=== PATIENT | male | born 1945 | race Caucasian/White ===

== ENCOUNTER 2021-03-11 10:22 | Inpatient (IN) | payer MEDICARE, OTHER ==
[~2021-03-11] VITALS: Ht 177.8 cm; Wt 88.5 kg
--- NOTE | 2021-03-11 11:30 | NUR ---
covid antigen sent to lab.
[2021-03-11 11:48] LABS: CALCIUM, SERUM 8.3 mg/dL (8.5-10.1); CARBON DIOXIDE 24 mmol/L (21-32); CHLORIDE 111 mmol/L (98-107); CREATININE 4.4 mg/dL (0.6-1.3); GLUCOSE 103 mg/dL (74-106); POTASSIUM 4.4 mmol/L (3.5-5.1); SODIUM SERUM 142 mmol/L (136-145); UREA NITROGEN, BLOOD 42 mg/dL (7-18)
[2021-03-11] MEDS ORDERED: NIFE90TA61 PO (12:10)
[2021-03-11] MEDS ORDERED: ATOR10TA PO (12:10)
[2021-03-11] MEDS ORDERED: HYDR-4077 PO (12:10)
[2021-03-11] MEDS ORDERED: ASPI-1420 PO (12:10)
[2021-03-11] MEDS ORDERED: ACET-868 PO (12:11)
[2021-03-11 12:20] LABS: BASOPHILS % (AUTO) 0.2 % (0.0-2.0); EOSINOPHILS % (AUTO) 1.4 % (0.0-6.0); HEMATOCRIT 29 % (39-51); HEMOGLOBIN 9.6 g/dL (13.5-17.5); LYMPHOCYTES % (AUTO) 11.9 % (20.0-44.0); MEAN CORPUSCULAR HGB CONC 34 g/dl (31.0-36.0); MEAN CORPUSCULAR VOLUME 95 fL (80-96); MONOCYTES # (AUTO) 0.7 K/uL (0.1-1.30); MONOCYTES % (AUTO) 8.1 % (2.0-12.0); NEUTROPHILS # (AUTO) 6.8 K/uL (1.8-8.9); NEUTROPHILS % (AUTO) 78.4 % (43.0-81.0); PLATELET COUNT (AUTO) 173 K/uL (150-450); RED BLOOD CELL COUNT(AUTO) 3.02 MIL/uL (4.5-6.0); WHITE BLOOD COUNT (AUTO) 8.6 K/uL (4.3-11.0)
[2021-03-11] MEDS ORDERED: MORPHINE SULFATE INJ 2 MG/ML DISP.SYRIN IV PRN (12:30)
[2021-03-11] MEDS ORDERED: IV NS 0.9% 1,000 ML IV PRN (12:30)
[2021-03-11] MEDS ORDERED: ACETAMINOPHEN 325 MG TABLET PO PRN (12:30)
[2021-03-11] MEDS ORDERED: hydrALAZINE HCL IV 20 MG VIAL IV PRN (12:30)
[2021-03-11] MEDS ORDERED: ONDANSETRON HCL/PF 4 MG/2 ML VIAL IVP PRN (12:30)
[2021-03-11 13:00] VITALS: BP 147/73
--- NOTE | 2021-03-11 13:19 | NUR ---
ROOM 320-2
[2021-03-11] MEDS ORDERED: ANESTHESIA TRAY IN PYXIS 1 EA TRAY MC ONE (14:21)
[2021-03-11] MEDS ORDERED: IOHEXOL 240MG/ML 0 ML IV ONE (14:21)
[2021-03-11] MEDS ORDERED: LIDOCAINE 1% INJ 50 ML MDV IJ ONE (14:22)
--- NOTE | 2021-03-11 14:30 | NUR ---
CONSTRUCTION REPRESENTATIVE NOTES RECEIVED PATIENT IN STABLE CONDITION. VITAL SIGNS: TEMP 97.8, HR 53, RR 18, BP 147/73, O2 SAT 97%. R HAND #20G IV ACCESS INTACT AND PATENT. PATIENT IS ON RA WITH EQUAL CHEST EXPANSION DURING RESPIRATIONS. NO COMPLAINT OF PAIN VERBALIZED AT THIS TIME. WILL CONTINUE CARE PLAN.
--- NOTE | 2021-03-11 14:30 | NUR ---
PTRANSFERED TO TELE FLOOR IN STABLE CONDITION.
--- NOTE | 2021-03-11 15:40 | NUR ---
UNIX MANAGER NOTES PATIENT WAS PICKED UP FOR PACEMAKER PLACEMENT PROCEDURE. PATIENT IS STABLE WITH VITAL SIGNS WNL. ALL CONSENTS AND PAPERS SIGNED BY PATIENT. PATIENT WAS TRANSFERRED TO OR VIA BED ACCOMPANIED BY 2 OR NURSES.
[2021-03-11] MEDS ORDERED: FENTANYL PF 100MCG/2ML AMPUL ONE (16:05)
--- NOTE | 2021-03-11 17:30 | NUR ---
INCISING MACHINE OPERATOR NOTES PATIENT IS BACK IN ROOM STABLE. PATIENT V/S ARE WNL. EQUAL CHEST EXPANSIONS ON RA WITH NO COMPLAINTS OF DISTRESS OR DISCOMFORT AT THIS TIME. PACEMAKER IN PLACE L CHEST WALL. ALL ORDERS CARRIED OUT AND FAXED. SAFETY MEASURES IN PLACE: BED IN LOWEST POSITION WITH WHEELS LOCKED, CALL LIGHT WITHIN REACH. WILL CONTINUE TO MONITOR PATIENT.
--- NOTE | 2021-03-11 18:30 | NUR ---
CARTOGRAPHY TECHNICIAN NOTES RECEIVED REPORT FROM LAB WITH A CRITICAL VALUE OF TROPONIN 9.010. DR VERDE WAS INFORMED AND ORDERED A STAT REPEAT TROPONIN DRAW WELL A STAT EKG. PATIENT IS NOT DISPLAYING ANY SIGNS OF DISTRESS AT THE MOMENT. PATIENT IS NOT VERBALIZING ANY COMPLAINT OF CHEST PAIN OR PAIN AT ALL. WILL CONTINUE TO MONITOR PATIENT.
--- NOTE | 2021-03-11 18:50 | NUR ---
WAITER/WAITRESS CAFETERIA NOTES PATIENT IN BED AWAKE. PORTUGUESE SPEAKING EQUAL CHEST EXPANSIONS ON RA WITH NO COMPLAINTS OF DISTRESS OR DISCOMFORT AT THIS TIME. S/P PACEMAKER PLACEMENT L CHEST WALL. PATIENT SHOULD REMAIN ON BEDREST FOR MONITORING. ALL ORDERS CARRIED OUT. FOLLOW UP NEEDED WITH LAB FOR ANY PENDING RESULTS. SAFETY MEASURES IN PLACE: BED IN LOWEST POSITION WITH WHEELS LOCKED, CALL LIGHT WITHIN REACH. WILL ENDORSE TO BLUEPRINT REPRODUCER NURSE FOR AARON.
--- NOTE | 2021-03-11 19:45 | NUR ---
Patient is A&Ox4 sitting in bed, no signs of distress. Patient had family member translate Slovenian to Algerian. Patient denies any symptoms at this time says he feels good: denies chest pain, palpitations, lightheadedness, EKG just came back A-paced complexes 83bpm and borderline prolonged QT interval. Called lab to send smooth and burr worker composites for STAT repeat troponin. Educated patient to be on strict bed rest tonight in order to not expend too much energy.
[2021-03-11 20:00] VITALS: BP 139/81
--- NOTE | 2021-03-11 20:09 | NUR ---
Oven Equipment Repairer present drawing blood.
--- NOTE | 2021-03-11 21:40 | NUR ---
Repeat troponin 6.281 and EKG reported to and acknowledged by Dr. Olivera, cinder crusher operator. NNO.
[2021-03-11 23:35] LABS: BILIRUBIN,URINE NEGATIVE (NEGATIVE); COLOR,URINE YELLOW (YELLOW); LEUKOCYTE ESTERASE ,URINE NEGATIVE (NEGATIVE); NITRITE, URINE NEGATIVE (NEGATIVE); PH,URINE 6.5 (5.0-8.0); PROTEIN,URINE TRACE mg/dl (NEGATIVE); UGLUCOSE 100 MG/DL mg/dL (NEGATIVE); UROBILINOGEN,URINE 0.2 EU/dL (0.2)
[2021-03-11 23:45] LABS: CREATININE, URINE 34.5 MG/DL (30.0-125.0); URINE TOTAL PROTEIN 37.8 mg/dL (0-11.9)
[2021-03-12] VITALS: BP 113/40
[2021-03-12 04:00] VITALS: BP 156/108
--- NOTE | 2021-03-12 06:25 | NUR ---
Patient has been stable overnight. No symptoms, patient prefers to be left alone, but frequent checks for wellbeing. Patient is A-pacing on the monitor with PACs 70s. Patient was on fluids for 2 or 3 hours then refused. Patient is annoyed easily and is impatient for nurse to get translation assistance. Urine was collected and picked up by lab.
--- NOTE | 2021-03-12 06:54 | NUR ---
collected mrsa swab put in fridge.
[2021-03-12 07:24] LABS: CREATINE KINASE, TOTAL 259 U/L (39-308)
--- NOTE | 2021-03-12 07:30 | NUR ---
LARYNGOLOGIST OPENING NOTES RECEIVED PATIENT IN BED AWAKE. KHMER SPEAKING EQUAL CHEST EXPANSIONS ON RA WITH NO COMPLAINTS OF DISTRESS OR DISCOMFORT AT THIS TIME. PACEMAKER PLACEMENT L CHEST WALL. SAFETY MEASURES IN PLACE: BED IN LOWEST POSITION WITH WHEELS LOCKED, CALL LIGHT WITHIN REACH. WILL CONTINUE TO MONITOR PATIENT
[2021-03-12 07:41] LABS: BASOPHILS % (AUTO) 0.3 % (0.0-2.0); HEMATOCRIT 28 % (39-51); HEMOGLOBIN 9.4 g/dL (13.5-17.5); LYMPHOCYTES # (AUTO) 1.2 K/uL (0.8-4.8); LYMPHOCYTES % (AUTO) 15.2 % (20.0-44.0); MEAN CORPUSCULAR HGB CONC 34 g/dl (31.0-36.0); MEAN CORPUSCULAR VOLUME 94 fL (80-96); MONOCYTES # (AUTO) 0.6 K/uL (0.1-1.30); MONOCYTES % (AUTO) 7.7 % (2.0-12.0); NEUTROPHILS # (AUTO) 5.9 K/uL (1.8-8.9); NEUTROPHILS % (AUTO) 74.8 % (43.0-81.0); PLATELET COUNT (AUTO) 165 K/uL (150-450); RED BLOOD CELL COUNT(AUTO) 2.93 MIL/uL (4.5-6.0); WHITE BLOOD COUNT (AUTO) 7.8 K/uL (4.3-11.0)
[2021-03-12 08:00] VITALS: BP 146/76
[2021-03-12] MEDS ORDERED: REGADENOSON 0.4 MG/5 ML DISP.SYRIN IVP ONE (08:00)
[2021-03-12 08:08] LABS: ALANINE AMINOTRANSFERASE 12 U/L (12-78); ALBUMIN 3.3 g/dL (3.4-5.0); ALKALINE PHOSPHATASE 63 U/L (46-116); ASPARTATE AMINOTRANSFERASE 23 U/L (15-37); BILIRUBIN,TOTAL 0.3 mg/dL (0.2-1.0); CALCIUM, SERUM 8.5 mg/dL (8.5-10.1); CARBON DIOXIDE 20 mmol/L (21-32); CHLORIDE 112 mmol/L (98-107); CREATININE 4.2 mg/dL (0.6-1.3); GLUCOSE 91 mg/dL (74-106); MAGNESIUM 2.6 mg/dL (1.8-2.4); PHOSPHORUS 3.6 mg/dL (2.5-4.9); POTASSIUM 4.9 mmol/L (3.5-5.1); SODIUM SERUM 143 mmol/L (136-145); TOTAL PROTEIN, SERUM 7.1 g/dL (6.4-8.2); UREA NITROGEN, BLOOD 44 mg/dL (7-18)
[2021-03-12] MEDS ORDERED: NIFEdipine XL (30MG) 30 MG TAB PO SCH (09:00)
[2021-03-12] MEDS ORDERED: ASPIRIN EC 81 MG TABLET.DR PO SCH (09:00)
[2021-03-12] MEDS ORDERED: hydrALAZINE HCL 50 MG TABLET PO SCH (09:00)
[2021-03-12] MEDS ORDERED: TAMS-12 PO (11:24)
[2021-03-12 12:00] VITALS: BP 156/73
--- NOTE | 2021-03-12 14:00 | NUR ---
PEOPLE GREETERCHIEF CHEMIST NOTES PATIENT IS STABLE FOR DISCHARGE. PATIENT IS JAPANESE SPEAKING. DAUGHTER IS AT BEDSIDE FOR DISCHARGE INSTRUCTIONS. DAUGHTER IS ABLE TO VERBALIZE UNDERSTANDING OF DISCHARGE INSTRUCTIONS. EXIT CARE PACKET PROVIDED. ALL LINES REMOVED AND ID BAND REMOVED. PATIENT LEFT FACILITY ACCOMPANIED BY DAUGHTER IN PRIVATE CAR.
[2021-03-12 14:45] LABS: BACTERIA,URINE FEW /HPF (None Seen); SQUAMOUS EPITHELIAL CELL,UR FEW /HPF (None Seen); WBC,URINE 0-3 /HPF (0-3)
[2021-03-12 17:30] LABS: EOSINOPHIL,URINE None Seen
[2021-03-13 11:07] LABS: *SPE A/G RATIO 1.2 (0.7-1.7); *SPE ALPHA-1-GLOBULIN 0.2 g/dL (0.0-0.4); *SPE ALPHA-2-GLOBULIN 0.8 g/dL (0.4-1.0); *SPE BETA GLOBULIN 0.9 g/dL (0.7-1.3); *SPE M-SPIKE Not Observed g/dL (Not Observed)
== END 2021-03-12 15:00 | disposition home or self-care (01) | DRG 171 ==
LOC: ER 10:22 → TELE 13:55
PROVIDERS: ADMIT Internal Medicine; ATTEND Internal Medicine
PROC: 0JH606Z Insertion of Pacemaker, Dual Chamber into Chest Subcutaneous Tissue and Fascia, Open Approach (ICD-10-PCS; principal; 2021-03-11)
PROC: 02H63JZ Insertion of Pacemaker Lead into Right Atrium, Percutaneous Approach (ICD-10-PCS; 2021-03-11)
PROC: 02HK3JZ Insertion of Pacemaker Lead into Right Ventricle, Percutaneous Approach (ICD-10-PCS; 2021-03-11)
DX: I49.5 Sick sinus syndrome (principal); N17.0 Acute kidney failure with tubular necrosis; I21.4 Non-ST elevation (NSTEMI) myocardial infarction; I50.9 Heart failure, unspecified; I13.0 Hypertensive heart and chronic kidney disease with heart failure and stage 1 through stage 4 chronic kidney disease, or unspecified chronic kidney disease; N40.0 Benign prostatic hyperplasia without lower urinary tract symptoms; N18.4 Chronic kidney disease, stage 4 (severe); Z20.822 Contact with and (suspected) exposure to COVID-19; N40.1 Benign prostatic hyperplasia with lower urinary tract symptoms; R33.8 Other retention of urine; E87.5 Hyperkalemia; Z79.82 Long term (current) use of aspirin; Z79.899 Other long term (current) drug therapy; D63.8 Anemia in other chronic diseases classified elsewhere; E78.5 Hyperlipidemia, unspecified; N25.0 Renal osteodystrophy; F17.200 Nicotine dependence, unspecified, uncomplicated
CPT/HCPCS: 36415; 71045-TC; 76770-TC; 80048-TC; 80053-TC; 81001; 82550-TC; 82570-TC; 83735-TC; 83880; 83970; 84100-TC; 84155; 84155-TC; 84165; 84300-TC; 84484-TC; 85025-TC; 85730-TC; 86850-TC; 87081-TC; 93307-TC; C1785; C9803; G0378; J0690; J2704; J2785; J3010; J3490; J7030; Q9966